=== PATIENT | female | born 1980 | race Caucasian/White ===

== ENCOUNTER 2016-09-14 21:17 | Emergency (ER) | payer MEDICAID ==
[~2016-09-14] VITALS: Ht 152.4 cm; Wt 60.5 kg
[~2016-09-14 21:17] MED LIST: BACTRIM
[2016-09-15] MEDS ORDERED: KETOROLAC 60MG/2ML VIAL IM ONE (02:45)
[2016-09-15] MEDS ORDERED: FLUORESCEIN SODIUM 1MG/STRIP RIGHTEYE ONE (02:45)
[2016-09-15] MEDS ORDERED: TETRACAINE 0.5% OPHTH DROPS 4ML RIGHTEYE ONE (02:45)
[2016-09-15 03:09] VITALS: BP 130/74
== END 2016-09-15 05:40 | disposition home or self-care (01) ==
LOC: ER 21:17
DX: S01.119A Laceration without foreign body of unspecified eyelid and periocular area, initial encounter (principal); S05.90XA Unspecified injury of unspecified eye and orbit, initial encounter; S05.01XA Injury of conjunctiva and corneal abrasion without foreign body, right eye, initial encounter; W22.8XXA Striking against or struck by other objects, initial encounter; Y93.89 Activity, other specified; Y92.89 Other specified places as the place of occurrence of the external cause; Y99.8 Other external cause status
CPT/HCPCS: 12011; 96372; 99283; J1885; Z7610